=== PATIENT | female | born 1990 | race Caucasian/White ===

== ENCOUNTER 2019-07-13 08:45 | Outpatient (CLI) | payer OTHER ==
--- NOTE | 2019-07-13 10:42 | CT ---
EXAM: CT Abdomen Pelvis W WO con PROVIDED CLINICAL HISTORY: Chronic hematuria. COMPARISON: None FINDINGS: A subcentimeter too small to characterize hypodense lesion is seen at the junction of the midportion and inferior pole right kidney. Kidneys otherwise demonstrate a normal CT appearance bilaterally without evidence of an enhancing renal mass. No renal or ureteral calculus is seen bilaterally, and t here is no hydronephrosis. There is prominence of the right renal pelvis which is nonspecific. No obvious filling defect is seen within the renal collecting systems or proximal opacified ureters. Mid and distal ureters are not well opacified. Urinary bladder is incompletely distended but otherwise normal in appearance. The lung bases, liver, spleen, pancreas, bilateral adrenal glands, and abdominal aorta demonstrate a normal CT appearance. There is diminished attenuation seen in the endometrial canal with slight heterogeneity in the lower aspect of the endometrial canal. This may be related to the stage of the patient's menstrual cycle. No free fluid, fluid collection, or lymphadenopathy is seen in the abdomen or pelvis. Small to modera te amount of retained fecal material is seen throughout the colon. Loops of fluid-filled small bowel are normal in caliber. No suspicious lytic or sclerotic osseous lesions are identified. There is a sclerotic density seen wi thin the left iliac bone demonstrating characteristics most compatible with bone island. IMPRESSION: 1. No renal or ureteral calculi are seen bilaterally, and there is no hydronephrosis. 2. No enhancing renal mass is visualized. A subcentimeter too small to characterize hypodense lesion is seen in the right kidney which statistically likely represents a renal cyst. 3. Diminished attenuation and slight heterogeneity in the lower uterine segment. These findings may b e related to stage of the patient's menstrual cycle, but this is difficult further evaluate on CT exam. 4. Small to moderate amount of retained fecal material is seen throughout the colon suggesting consti pation.
== END 2019-07-13 08:46 | disposition home or self-care (01) ==
LOC: SCSCT 08:45
PROVIDERS: ATTEND Urology
DX: N30.21 Other chronic cystitis with hematuria (principal); R31.0 Gross hematuria; K59.00 Constipation, unspecified; R93.89 Abnormal findings on diagnostic imaging of other specified body structures
CPT/HCPCS: 74178

== ENCOUNTER 2021-09-25 13:25 | Outpatient (CLI) | payer OTHER ==
[~2021-09-25 13:25] MED LIST: Iopamidol 200 41% 50 ML VIAL FS ONE
[2021-09-25 14:01] LABS: BHCG - Serum Negative (NEGATIVE); Pregs Control Background? CLEAR/WHITE (CLR/WHITE); Pregs Control Bar Appear? YES (CONTROL BAR)
== END 2021-09-25 13:26 | disposition home or self-care (01) ==
LOC: RAD 13:25
PROVIDERS: ATTEND Obstetrics & Gynecology
DX: Z32.00 Encounter for pregnancy test, result unknown (principal); Z86.19 Personal history of other infectious and parasitic diseases
CPT/HCPCS: 58340; 74740; 84703